=== PATIENT | male | born 1995 | race Two or more races ===

== ENCOUNTER 2025-02-27 16:06 | Emergency (ER) | payer OTHER ==
[~2025-02-27] VITALS: Ht 182.9 cm; Wt 82.6 kg
[2025-02-27] MEDS ORDERED: GEODON20 MG PO (16:27)
[2025-02-27] MEDS ORDERED: ORPHENADRINE CITRATE 30 MG/ML AMPUL ONE (16:44)
[2025-02-27] MEDS ORDERED: KETOROLAC TROMETHAMINE 60 MG VIAL IM ONE ×2 (16:44→16:45)
[2025-02-27] MEDS ORDERED: ORPHENADRINE CITRATE 30 MG/ML AMPUL IM ONE (16:45)
== END 2025-02-27 18:33 | disposition home or self-care (01) ==
LOC: ER 16:06
DX: M54.6 Pain in thoracic spine (principal); F90.8 Attention-deficit hyperactivity disorder, other type; V43.52XA Car driver injured in collision with other type car in traffic accident, initial encounter; Y93.89 Activity, other specified; Y92.413 State road as the place of occurrence of the external cause
CPT/HCPCS: 72070; 96372; 99283; J1885; J2360